=== PATIENT | female | born 1975 | race Caucasian/White ===

== ENCOUNTER 2016-10-29 09:39 | Emergency (ER) | payer OTHER ==
[2016-10-29 10:09] VITALS: PULSE 93; RESP 18; TEMP 98.8; O2SAT 97
--- NOTE | 2016-10-29 10:51 | UCPHY ---
[id number] COMPLAINT: Sore throat HISTORY OF PRESENT ILLNESS: This is a 41-year-old female in general good health who presents with sore throat that has been present for the past 3 days. She also describes pustules on her left tonsil. She 1st noticed these last night. She has been able to swallow,albeit painfully. She has had nasal drainage and a mild cough. She denies fever. She has not been short of breath. Her children have a similar illness. REVIEW OF SYSTEMS: A ten point review of systems was performed and is negative with the exception of the items mentioned in the HPI. Past Medical/Surgical History: Family history is not pertinent. Social History: with 3 children. 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 No tobacco use. Smoking Status: Never smoked Physical Exam: General Appearance: Alert. Vital signs reviewed. Blood pressure 147/94. Eyes: Pupils equal and round, no conjunctival injection, no discharge. Anicteric. ENT, Mouth: Mucous membranes are moist, mild tonsillar swelling with left tonsillolith. No exudate. Managing secretions easily. Neck: No lymphadenopathy, supple. Respiratory: Lungs are clear to auscultation; no wheezes, rales, or rhonchi. Cardiovascular: Regular rate and rhythm; no murmur, rub, or gallop. Skin: Warm and dry, no rashes on exposed skin, normal color. Back: Nontender to palpation over the thoracolumbar spine. No CVAT. Extremities: No lower extremity edema, no calf tenderness or swelling. Neurological: Alert and oriented. Moving all four extremities easily and equally. Psychiatric: Normal affect. Constitutional: Initial Vital Signs Temperature (C) 37.1 C 10/29/16 10:04 Heart Rate 93 10/29/16 10:04 Respiratory Rate 18 10/29/16 10:04 Blood Pressure 147/94 H 10/29/16 10:04 O2 Sat (%) 97 10/29/16 10:04 O2 Delivery Mode Room Air Allergies/Adverse Reactions: No Known Allergies Allergy (Unverified 10/29/16 10:09) Home Medications: Medication Instructions Recorded Ranitidine HCl 10/29/16 Medical Decision Making ED Course/Re-evaluation: 41-year-old female with was likely a viral pharyngitis. I do not see evidence bacterial pharyngitis. She does not have tonsillar exudates. Her rapid strep test is negative. She is not febrile or ill-appearing. She is able to eat and drink. I am recommending symptomatic treatment. Differential Diagnosis: I considered a differential diagnosis that includes but is not limited to viral or bacterial pharyngitis/tonsillitis, retropharyngeal abscess, epiepiglottitis, peritonsillar abscess, and upper respiratory infection. - Data Points Laboratory Results: 10/29/16 10/29/16 Unknown 10:00 Group A Strep Screen NEGATIVE (NEGATIVE) Group A Strep DNA Pending Departure - Departure Disposition: Home, Routine, Self-Care Clinical Impression: Pharyngitis Qualifiers: Qualifier Code: (J02.9) Acute pharyngitis, unspecified Condition: Good Instructions: Pharyngitis (ED) Additional Instructions: As we discussed, this is likely a viral illness. A rapid strep test is negative. If the longer acting strep test is positive we will call you. I recommend symptomatic treatment. Control your pain by alternating Tylenol and ibuprofen. Use [id number] throat lozenges. I also recommend throat coat tea made by [facility]. Add some honey to the tea. Your initial blood pressure was 147/94. Have this followed up with Dr.Joseph Wallis within the next month or so. Referrals: [place],. [Primary Care Provider] - As per Instructions - PQRS PQRS Measurement: Does not apply.
[2016-10-29 10:59] VITALS: BP 132/108
== END 2016-10-29 10:59 | disposition home or self-care (01) ==
LOC: CED 09:39
DX: J02.9 Acute pharyngitis, unspecified (principal); L08.9 Local infection of the skin and subcutaneous tissue, unspecified
CPT/HCPCS: 87880-PO; G0463-PO